=== PATIENT | female | born 1955 | race Caucasian/White ===

== ENCOUNTER 2024-08-12 00:55 | Inpatient (IN) ==
[2024-08-12] MEDS ORDERED: ONDANSETRON 4 MG/2 ML VIAL IV PRN (02:10)
[2024-08-12] MEDS: 0.9 % SODIUM CHLORIDE 10 ML SYRINGE IV SCH (04:00)
[2024-08-12] MEDS: ACETAMINOPHEN 325 MG TABLET PO PRN (05:32)
[2024-08-12 06:15] LABS: ALT/SGPT 21 U/L (<40); AST/SGOT 26 U/L (<32); Albumin 3.6 gm/dL (3.2-5.2); Albumin/Globulin Ratio 1.4 (1.0-2.3); Alkaline Phosphatase 88 U/L (39-117); Bilirubin,Direct < 0.2 mg/dL (0-0.3); Bilirubin,Total 0.3 mg/dL (0.1-1.0); Blood Urea Nitrogen 17 mg/dL (8-23); Calcium 8.9 mg/dL (8.6-10.4); Carbon Dioxide 18 mmol/L (22-30); Chloride 106 mmol/L (96-108); Globulin 2.6 gm/dL (2.2-3.7); Glomerular Filtration Rate 47; Glucose 96 mg/dL (70-105); Lactate Dehydrogenase 143 U/L (135-225); Phosphorous 2.8 mg/dL (2.5-4.5); Potassium 5.1 mmol/L (3.3-5.1); Sodium 139 mmol/L (133-145); Triglycerides 171 mg/dL (<150); Uric Acid 9.3 mg/dL (2.5-8.0)
[2024-08-12 06:31] LABS: Basophils # (Auto) 0.02 K/mcL (0.00-0.30); Basophils % (Auto) 0.4 % (0.0-2.0); Eosinophils # (Auto) 0.09 K/mcL (0.00-0.70); Eosinophils % (Auto) 1.7 % (0.0-7.0); Hematocrit 33.2 % (34.1-44.9); Hemoglobin 10.4 g/dL (11.2-15.7); Lymphocytes # (Auto) 2.37 K/mcL (1.50-4.80); Lymphocytes % (Auto) 45.2 % (15.5-49.0); Mean Cell Volume 89.5 fL (80.0-100.0); Mean Corpuscular HGB Conc 31.3 g/dL (31.0-36.0); Mean Platelet Volume 10.6 fL (8.8-12.5); Monocytes # (Auto) 0.41 K/mcL (0.10-0.90); Monocytes % (Auto) 7.8 % (1.0-12.0); Neutrophils % (Auto) 44.7 % (38.0-78.0); Platelet Count 234 K/mcL (140-440); RBC 3.71 M/mcL (3.59-5.38); WBC 5.2 K/mcL (4.5-11.0)
[2024-08-12] MEDS: ACETAMINOPHEN 325 MG TABLET PO ONE (08:04)
[2024-08-12] MEDS: DOCUSATE SODIUM 100 MG CAPSULE PO SCH (11:20)
[2024-08-12] MEDS: GABAPENTIN 300 MG CAPSULE PO SCH (15:15)
[2024-08-12] MEDS: TOPIRAMATE 100 MG TABLET PO SCH (20:04)
[2024-08-12] MEDS: SENNOSIDES 1 TABLET PO SCH (22:50)
[2024-08-13 07:01] LABS: ALT/SGPT 21 U/L (<40); AST/SGOT 27 U/L (<32); Albumin 3.6 gm/dL (3.2-5.2); Albumin/Globulin Ratio 1.4 (1.0-2.3); Alkaline Phosphatase 84 U/L (39-117); Bilirubin,Direct < 0.2 mg/dL (0-0.3); Bilirubin,Total 0.3 mg/dL (0.1-1.0); Blood Urea Nitrogen 17 mg/dL (8-23); Calcium 9.4 mg/dL (8.6-10.4); Carbon Dioxide 20 mmol/L (22-30); Chloride 104 mmol/L (96-108); Globulin 2.6 gm/dL (2.2-3.7); Glomerular Filtration Rate 47; Glucose 88 mg/dL (70-105); Lactate Dehydrogenase 152 U/L (135-225); Potassium 3.7 mmol/L (3.3-5.1); Sodium 138 mmol/L (133-145); Triglycerides 158 mg/dL (<150); Uric Acid 8.4 mg/dL (2.5-8.0)
[2024-08-13 07:11] LABS: Basophils # (Auto) 0.02 K/mcL (0.00-0.30); Basophils % (Auto) 0.4 % (0.0-2.0); Eosinophils # (Auto) 0.16 K/mcL (0.00-0.70); Eosinophils % (Auto) 3.4 % (0.0-7.0); Hemoglobin 10.7 g/dL (11.2-15.7); Lymphocytes # (Auto) 2.75 K/mcL (1.50-4.80); Lymphocytes % (Auto) 58.4 % (15.5-49.0); Mean Corpuscular HGB Conc 31.5 g/dL (31.0-36.0); Mean Platelet Volume 10.4 fL (8.8-12.5); Monocytes # (Auto) 0.36 K/mcL (0.10-0.90); Monocytes % (Auto) 7.6 % (1.0-12.0); Platelet Count 238 K/mcL (140-440); RBC 3.82 M/mcL (3.59-5.38); WBC 4.7 K/mcL (4.5-11.0)
[2024-08-13] MEDS: PANTOPRAZOLE 40 MG TABLET PO SCH (07:19)
[2024-08-13] MEDS: LEVOTHYROXINE 125 MCG TABLET PO SCH (07:19)
[2024-08-13 07:38] LABS: Iron 76 ug/dL (37-145); TIBC Calculation 212 ug/dl (228-428); Transferrin % Saturation 36 % (15-50)
[2024-08-13 07:58] LABS: Estimated Average Glucose(eAG) 94 mg/dL; Hemoglobin A1C 4.9 % Hgb (4.0-6.0)
[2024-08-13] MEDS: SPIRONOLACTONE 25 MG TABLET PO SCH (09:11)
[2024-08-14] MEDS: LOPERAMIDE 2 MG CAPSULE PO PRN (11:26)
[2024-08-14] MEDS: ZOLPIDEM 5 MG TABLET PO PRN (22:01)
[2024-08-14] MEDS: MELATONIN 3 MG TABLET PO SCH (22:01)
== END 2024-08-15 13:20 | DRG 93 ==
LOC: ICU → MEDSUR 22:48
PROVIDERS: ADMIT Internal Medicine; ATTEND Student in an Organized Health Care Education/Training Program